=== PATIENT | male | born 1995 | race Caucasian/White ===

== ENCOUNTER 2017-03-30 20:52 | Emergency (ER) | payer OTHER ==
[2017-03-30 21:11] VITALS: BP 145/85; PULSE 128; TEMP 98.3; BMI 25.4
--- NOTE | 2017-03-30 21:37 | PDOC ---
History of Present Illness - General Chief Complaint: Pain Stated Complaint: INFECTION Time Seen by Provider: 03/30/17 21:19 History Source: Patient - History of Present Illness Location: reports: extremities Past History - Past Medical History Allergies/Adverse Reactions: Allergies Allergy/AdvReac Type Severity Reaction Status Date / Time No Known Allergies Allergy Verified 03/30/17 21:05 Home Medications: Ambulatory Orders Buprenorphine HCl [Subutex -] 8 mg SL ONCE 01/21/15 Clindamycin [Cleocin -] 300 mg PO Q6HPO #28 capsule 03/30/17 Anemia: No Asthma: Yes ( A CHILD) Cancer: No Cardiac Disorders: No CVA: No COPD: No CHF: No Dementia: No Diabetes: No GI Disorders: (DYSPEPSIA) Disorders: No HTN: No Hypercholesterolemia: No Kidney Stones: No Liver Disease: No Suicide Attempt (Hx): No Seizures: No Thyroid Disease: No - Reproductive History Testicular Surgery: No - Immunization History Immunization Up to Date: Yes - Psycho/Social/Smoking Cessation Hx Anxiety: No Suicidal Ideation: No Smoking History: Current every day smoker Have you smoked in the past 12 months: No Number of Cigarettes Smoked Daily: 20 Cigars Per Day: 0 Information on smoking cessation initiated: No 'Breaking Loose' booklet given: 06/29/16 Hx Alcohol Use: No Drug/Substance Use Hx: No Substance Use Type: Cocaine, Heroin, Tranquilizers Hx Substance Use Treatment: Yes (DETOX) Review of Systems - Review of Systems Constitutional: No: Chills, Fever Integumentary: Yes: Erythema *Physical Exam - Vital Signs Last Vital Signs Temp Pulse Resp BP Pulse Ox 98.3 F 128 H 18 145/85 97 03/30/17 21:07 03/30/17 21:07 03/30/17 21:07 03/30/17 21:07 03/30/17 21:07 - Physical Exam General Appearance: Yes: Appropriately Dressed. No: Apparent Distress HEENT: positive: Normal Voice Neck: positive: Supple Respiratory/Chest: negative: Respiratory Distress Integumentary: positive: Dry, Warm, Other (~1 cm induration w/ limited erythema to antecub of R elbow, no fluctuance, no swelling to joint w/ FROMI) Neurologic: positive: Fully Oriented, Alert, Normal Mood/Affect Medical Decision Making - Medical Decision Making 03/30/17 21:22 22 yo M, admits to IVDU, now here w/ pain, redness and swelling to L elbow at site where pt usually injects. No f/c. See exam Early abscess to R elbow in pt w/ h/o IVDA No fluctuance to drain at this time and no e/o deeper infxn, i.e septic joint -Will dc w/ abx, instructoon for warm compresses and wound check in 48 hrs -Cessation of drug use strongly discouraged 03/30/17 22:01 03/30/17 22:03 03/30/17 22:03 HR normalized to 86 on my reassessment prior to discharge *DC/Admit/Observation/Transfer Diagnosis at time of Disposition: Abscess of skin AND/OR subcutaneous tissue - Discharge Dispostion Disposition: HOME Condition at time of disposition: Good - Prescriptions Prescriptions: Clindamycin [Cleocin -] 300 mg PO Q6HPO #28 capsule - Patient Instructions Printed Discharge Instructions: DI for Skin Abscess Additional Instructions: You appear to have an early abscess. Please apply warm compresses to area and take medication as directed Please return to the ED in 2 days for wound check
== END 2017-03-30 22:06 | disposition home or self-care (01) ==
LOC: JERFT 20:52
DX: L02.413 Cutaneous abscess of right upper limb (principal); F11.10 Opioid abuse, uncomplicated; F14.10 Cocaine abuse, uncomplicated
CPT/HCPCS: 99281-25

== ENCOUNTER 2019-09-20 07:26 | Emergency (ER) | payer BC, OTHER ==
[2019-09-20] MEDS ORDERED: ACETAMINOPHEN 325 MG TABLET (FP) ONE (07:39)
[2019-09-20] MEDS ORDERED: ACETAMINOPHEN 325 MG TABLET (FP) PO ONE (07:42)
[2019-09-20 07:44] VITALS: BMI 25.1
--- NOTE | 2019-09-20 08:33 | PDOC ---
History of Present Illness - General Chief Complaint: Respiratory Stated Complaint: CHEST PAIN,RESPIRATORY PROBLEMY Time Seen by Provider: 09/20/19 08:09 - History of Present Illness Initial Comments: 09/20/19 08:34 CHIEF COMPLAINT: cough, chest pain HISTORY OF PRESENT ILLNESS: 24 yo M with no PMH presents to ED with coughing and fever x 1 week. Patient reports hx of vaping 1-2 pods daily x 1 year. Patient reports severe chest pain to L side, worsened with coughing. Denies N/V , diarrhea 3-4 times daily for past 5 days. Denies any sick contacts. Denies recent travel. Patient he is feeling some relief of his chest pain after getting Tylenol in triage. No recent travel or sick contacts. PAST MEDICAL HISTORY: Denies past medical history FAMILY HISTORY: Denies SOCIAL HISTORY: 13 pack year smoking history. Vaping x 1 year. SURGICAL HISTORY: Denies ALLERGIES: No known drug allergies REVIEW OF SYSTEMS General/Constitutional: Fever. Denies weakness, weight change. HEENT: Denies change in vision. Denies ear pain or discharge. Denies sore throat. Cardiovascular: Denies chest pain or shortness of breath. Respiratory: Cough x 1 week. Denies wheezing, or hemoptysis. Gastrointestinal: Denies nausea, vomiting, diarrhea or constipation. Denies rectal bleeding. Genitourinary: Denies dysuria, frequency, or change in urination. Musculoskeletal: Denies joint or muscle swelling or pain. Denies neck or back pain. Skin and breasts: Denies rash or easy bruising. Neurologic: Denies headache, vertigo, loss of consciousness, or loss of sensation. Psychiatric: Denies depression or anxiety. PHYSICAL EXAM General Appearance: Diaphoretic. Otherwise well-appearing, appropriately dressed. No apparent distress. HEENT: EOMI, PERRLA, normal ENT inspection, normal voice, TMs normal, pharynx normal. No conjunctival pallor. No photophobia, scleral icterus. Neck: Supple. Trachea midline. No tenderness, rigidity, carotid bruit, stridor , lymphadenopathy, or thyromegaly. Respiratory/Chest: Lungs CTAB. No shortness of breath, chest tenderness, respiratory distress, accessory muscle use. No crackles, rales, rhonchi, stridor , wheezing, dullness Cardiovascular: RRR. S1, S2. No JVD, murmur, bradycardia, tachycardia. Gastrointestinal/Abdominal: Normal bowel sounds. Abdomen soft, non-distended. No tenderness or rebound tenderness. No organomegaly, pulsatile mass, guarding , hernia, hepatomegaly, splenomegaly. Musculoskeletal/Extremities: Normal inspection. FROM of all extremities, normal capillary refill. Pelvis Stable. No CVA tenderness. No tenderness to extremities, pedal edema, swelling, erythema or deformity. Integumentary: Appropriate color, dry, warm. No cyanosis, erythema, jaundice or rash Neurologic: coin machine servicer repairer II-XII intact. Fully oriented, alert. Appropriate mood/affect. Motor strength 5/5. No appreciable EOM palsy, facial droop or sensory deficit. Past History - Past Medical History Allergies/Adverse Reactions: Allergies Allergy/AdvReac Type Severity Reaction Status Date / Time No Known Allergies Allergy Verified 09/20/19 07:35 Home Medications: Ambulatory Orders Benzonatate [Tessalon Perle -] 100 mg PO TID #21 capsule 09/20/19 Benzonatate [Tessalon Perle -] 100 mg PO TID #21 capsule 09/20/19 Ibuprofen 600 mg PO QID #30 tablet 09/20/19 Ibuprofen 600 mg PO QID #30 tablet 09/20/19 Nicotine Patch [Nicoderm Patch -] 1 patch TD DAILY #30 patch 09/20/19 Nicotine [Nicotine Patch Kit] 1 each TD ASDIR #1 patch.dysq 09/20/19 Anemia: No Asthma: Yes ( A CHILD) Cancer: No Cardiac Disorders: No CVA: No COPD: No CHF: No Dementia: No Diabetes: No GI Disorders: (DYSPEPSIA) Disorders: No HTN: No Hypercholesterolemia: No Kidney Stones: No Liver Disease: No Seizures: No Thyroid Disease: No - Reproductive History Testicular Surgery: No - Immunization History Immunization Up to Date: Yes - Psycho Social/Smoking Cessation Hx Smoking History: Current every day smoker Have you smoked in the past 12 months: Yes Number of Cigarettes Smoked Daily: 20 Cigars Per Day: 0 Information on smoking cessation initiated: No 'Breaking Loose' booklet given: 06/29/16 Hx Alcohol Use: No Drug/Substance Use Hx: No Substance Use Type: Cocaine, Heroin, Tranquilizers Hx Substance Use Treatment: Yes (DETOX) Respiratory Specific PMHX - Complaint Specific PMHX Hx TB (Tuberculosis): No *Physical Exam - Vital Signs Last Vital Signs Temp Pulse Resp BP Pulse Ox 101.1 F H 127 H 18 142/76 98 09/20/19 07:42 09/20/19 07:42 09/20/19 07:42 09/20/19 07:42 09/20/19 07:42 ED Treatment Course - Medications Given in the ED: ED Medications Discontinued Medications Generic Name Dose Route Start Last Admin Trade Name Lamar PRN Reason Stop Dose Admin Acetaminophen 650 mg 09/20/19 07:42 09/20/19 07:42 Tylenol - PO 09/20/19 07:43 650 mg NOW ONE Administration Medical Decision Making - Medical Decision Making 09/20/19 09:21 24 yo M with no PMH presents to ED with coughing and fever x 1 week. -flu -CXR 09/20/19 09:45 flu, cxr negative. likely acute viral URI. Advised patient to take medication as prescribed and follow up with pulmonology within 1 week. Advised patient of signs and symptoms for return to ED. Patient verbalized understanding and agrees to plan. Discharge - Discharge Information Problems reviewed: Yes Clinical Impression/Diagnosis: URI (upper respiratory infection) Qualifiers: URI type: unspecified URI Qualified Code(s): J06.9 - Acute upper respiratory infection, unspecified Condition: Stable Disposition: HOME - Admission No - Additional Discharge Information Prescriptions: Benzonatate [Tessalon Perle -] 100 mg PO TID #21 capsule Benzonatate [Tessalon Perle -] 100 mg PO TID #21 capsule Ibuprofen 600 mg PO QID #30 tablet Ibuprofen 600 mg PO QID #30 tablet Nicotine [Nicotine Patch Kit] 1 each TD ASDIR #1 patch.dysq Nicotine Patch [Nicoderm Patch -] 1 patch TD DAILY #30 patch - Follow up/Referral Referrals: Steve Gonzalez MD, MD [Staff Physician] - William Stone MD [Staff Physician] - - Patient Discharge Instructions Patient Printed Discharge Instructions: DI for Viral Upper Respiratory Infection -- Adult Additional Instructions: Please take medications as prescribed. Return to the emergency department immediately with ANY new, persistent or worsening symptoms. Please follow up with your PCP and/or fur scraper within the next week for continued monitoring of your symptoms. - Post Discharge Activity
[2019-09-20 10:10] VITALS: BP 118/75; PULSE 109; TEMP 98
--- NOTE | 2019-09-20 13:42 | EKG ---
Test Reason : Blood Pressure : / mmHG Vent. Rate : 115 BPM Atrial Rate : 115 BPM P-R Int : 142 ms QRS Dur : 098 ms QT Int : 324 ms P-R-T Axes : 072 076 050 degrees QTc Int : 448 ms POOR DATA QUALITY, INTERPRETATION MAY BE ADVERSELY AFFECTED SINUS TACHYCARDIA OTHERWISE NORMAL ECG WHEN COMPARED WITH ECG OF 18-JAN-2016 22:04, VENT. RATE HAS INCREASED BY 45 BPM Confirmed by CHAUNCEY EVANS MD ([id number]) on 09/20/2019 1:42:21 PM Referred By: Confirmed By:CHAUNCEY EVANS MD
== END 2019-09-20 10:19 | disposition home or self-care (01) ==
LOC: JER 07:26
DX: J06.9 Acute upper respiratory infection, unspecified (principal); F17.210 Nicotine dependence, cigarettes, uncomplicated
CPT/HCPCS: 71046-TC-FY; 87804; 93005; 93010; 99282-25

== ENCOUNTER 2025-03-22 21:11 | Emergency (ER) | payer BC, OTHER ==
[2025-03-22 21:17] VITALS: BP 134/68; RESP 18; TEMP 98.1; BMI 26.6
[2025-03-22] MEDS ORDERED: BACITRACIN ZINC 15 GM TUBE TOPICAL OINTMENT ONE (21:59)
[2025-03-22 22:09] VITALS: PULSE 70
[2025-03-23] MEDS ORDERED: BACITRACIN ZINC 15 GM TUBE TOPICAL OINTMENT TP SCH (10:00)
[2025-03-25 22:05] LABS: HCV DIAGNOSTIC IN-HOUSE W/RFLX NON-REACTIVE (NONREACTIVE)
[2025-03-25 22:06] LABS: HIV INTERPRETATION NEGATIVE (NEGATIVE)
== END 2025-03-22 22:09 | disposition home or self-care (01) ==
LOC: JERFT 21:11
DX: T23.242A Burn of second degree of multiple left fingers (nail), including thumb, initial encounter (principal); R20.0 Anesthesia of skin; X15.0XXA Contact with hot stove (kitchen), initial encounter
CPT/HCPCS: 36415; 86803; 87389; 99283-25